=== PATIENT | female | born 1975 | race Caucasian/White ===

== ENCOUNTER 2018-09-08 00:14 | Emergency (ER) | payer OTHER ==
[2018-09-08] MEDS ORDERED: ASPIRIN 325 MG TAB PO ONE (01:01)
[2018-09-08 01:07] LABS: PLATELET COUNT 407 10^3/uL (150-400)
--- NOTE | 2018-09-08 01:07 | EDPHY ---
H & P Stated Complaint: l sided cp to arm after workout Time Seen by Provider: 09/08/18 00:31 HPI/ROS: HPI The patient presents with chest pain which began at about 10:30 p.m. After she had finished a workout of upper body weight lifting. The pain occurred while at rest and came on suddenly it was left-sided, sharp in nature, radiated to her left arm causing numbness. It is not associated with any shortness of breath, nausea, vomiting, dizziness, diaphoresis. She continues to have the pain now though it is milder. She was evaluated by the paramedics and she was encouraged to seek care in the emergency department. She has been dealing with chest pain for the last several months though this pain is more pressure like in nature. It is been attributed to anxiety and she has recently started on medication. She is visiting from [facility] for a few days and drove just 1 hr yesterday.. REVIEW OF SYSTEMS 10 systems were reviewed and negative with the exception of the elements mentioned in the history of present illness. PMHx: Anxiety Soc Hx: Lives with her and children in [facility] PHYSICAL General Appearance: Alert, no distress Eyes: Pupils equal and round no pallor or injection ENT, Mouth: Mucous membranes moist Respiratory: There are no retractions, lungs are clear to auscultation Cardiovascular: Regular rate and rhythm Gastrointestinal: Abdomen is soft and non-tender, no masses, bowel sounds normal Neurological: A&O, moves all extremities Skin: Warm and dry, no rashes Musculoskeletal: Neck is supple non tender Extremities: symmetrical, full range of motion Psychiatric: Patient is oriented X 3, there is no agitation Source: Patient Exam Limitations: No limitations - Personal History LMP (Females 10-55): 15-21 Days Ago Current Tetanus/Diphtheria Vaccine: Yes Current Tetanus Diphtheria and Acellular Pertussis (TDAP): Yes - Medical/Surgical History Hx Asthma: No Hx Chronic Respiratory Disease: No Hx Diabetes: No Hx Cardiac Disease: No Hx Renal Disease: No Hx Cirrhosis: No Hx Alcoholism: No Hx HIV/AIDS: No Hx Splenectomy or Spleen Trauma: No - Social History Smoking Status: Never smoked Constitutional: Initial Vital Signs Temperature (C) 36.5 C 09/08/18 00:22 Heart Rate 79 09/08/18 00:22 Respiratory Rate 18 09/08/18 00:22 Blood Pressure 113/73 09/08/18 00:22 O2 Sat (%) 99 09/08/18 00:22 O2 Delivery Mode Room Air Allergies/Adverse Reactions: Penicillins Allergy (Verified 09/08/18 00:21) Home Medications: Medication Instructions Recorded Clonazepam 2 mg PO 09/08/18 Medical Decision Making Differential Diagnosis: 43-year-old healthy female presents with chest pain since 10:30 p.m. Tonight after finishing a workout. Pain is left-sided, radiates to left arm with some numbness. On exam, well-appearing, vital signs normal. Differential diagnosis includes ACS, pericarditis, GERD, costochondritis, anxiety, less likely PE given perc negative. In the emergency department, EKG was unremarkable. Labs were checked including troponin and this was also normal. Heart score was calculated at 1. The patient felt well enough to be discharged. I suspect her symptoms could be related to anxiety versus costochondritis. - Data Points Laboratory Results: Laboratory Results 09/08/18 00:47 09/08/18 00:47 Medications Given: Discontinued Medications Aspirin (Aspirin) 325 mg PO EDNOW ONE Stop: 09/08/18 01:02 Last Admin: 09/08/18 03:44 Dose: Not Given Point of Care Test Results: Chemistry 09/08/18 00:52 POC Troponin I 0.00 ng/mL ng/mL (0.00-0.08) Departure - Departure Disposition: Home, Routine, Self-Care Clinical Impression: Chest pain Qualifiers: Chest pain type: unspecified Qualified Code(s): R07.9 - Chest pain, unspecified Condition: Good Instructions: Chest Pain (ED) Additional Instructions: There was no sign of heart attack on your testing today. If your chest pain becomes worse or returns you should return to the emergency department for re- evaluation. Please follow-up with your primary care doctor in the next 1-2 weeks. Referrals: Keara Pierce PA [Primary Care Provider] - As per Instructions
[2018-09-08 01:40] VITALS: BP 102/60
--- NOTE | 2018-09-08 05:24 | CPEKG ---
Test Reason : OPEN Blood Pressure : / mmHG Vent. Rate : 078 BPM Atrial Rate : 079 BPM P-R Int : 165 ms QRS Dur : 101 ms QT Int : 384 ms P-R-T Axes : 051 051 046 degrees QTc Int : 438 ms Sinus rhythm Confirmed by Silvia Hayden ([id number]) on 09/08/2018 5:23:43 AM Referred By: Confirmed By:Silvia Hayden
== END 2018-09-08 01:39 | disposition home or self-care (01) ==
DX: R07.9 Chest pain, unspecified (principal)
CPT/HCPCS: 84484-PO